=== PATIENT | male | born 1955 | race Caucasian/White ===

== ENCOUNTER 2023-05-13 09:38 | Emergency (ER) | payer MEDICARE, OTHER ==
[~2023-05-13] VITALS: Ht 172.7 cm; Wt 97.7 kg
[2023-05-13 09:44] VITALS: BP 150/75; PULSE 72; RESP 16; TEMP 98.4
[2023-05-13] MEDS ORDERED: TOBROO OS (10:35)
== END 2023-05-13 11:47 | disposition home or self-care (01) ==
LOC: EMS 09:46
DX: H10.9 Unspecified conjunctivitis (principal); I10 Essential (primary) hypertension; R56.9 Unspecified convulsions; I48.91 Unspecified atrial fibrillation; Z88.5 Allergy status to narcotic agent
CPT/HCPCS: 99283; Z7502

== ENCOUNTER 2023-05-14 11:47 | Emergency (ER) | payer MEDICARE, OTHER ==
[~2023-05-14] VITALS: Ht 172.7 cm; Wt 97.3 kg
[~2023-05-14 11:47] MED LIST: TOBROO OS
[2023-05-14 11:53] VITALS: TEMP 98.3
[2023-05-14 12:37] VITALS: BP 130/70; PULSE 77; RESP 14
== END 2023-05-14 12:48 | disposition home or self-care (01) ==
LOC: EMS 12:42
DX: H10.9 Unspecified conjunctivitis (principal); I10 Essential (primary) hypertension; Z88.5 Allergy status to narcotic agent
CPT/HCPCS: 99281; Z7502